=== PATIENT | female | born 2000 | race Caucasian/White ===

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

== ENCOUNTER 2020-03-04 14:36 | Emergency (ER) | payer SELFPAY ==
[~2020-03-04] VITALS: Ht 157.5 cm; Wt 100.2 kg
[2020-03-04 14:52] VITALS: Ht 157.5 cm; Wt 100.2 kg
[2020-03-04 15:45] VITALS: BP 149/94
== END 2020-03-04 15:45 | disposition home or self-care (01) ==
LOC: ED 14:36
DX: S40.021A Contusion of right upper arm, initial encounter (principal); Z88.8 Allergy status to other drugs, medicaments and biological substances; V43.62XA Car passenger injured in collision with other type car in traffic accident, initial encounter; Y93.89 Activity, other specified; Y92.89 Other specified places as the place of occurrence of the external cause; Y99.8 Other external cause status
CPT/HCPCS: J1885